=== PATIENT | female | born 1950 | race Caucasian/White ===

== ENCOUNTER → 2016-10-29 | Outpatient (CLI) | payer MEDICARE, OTHER ==
[~2016-10-29] MED LIST: ASPIRIN EC81 M1 PO; CARTIA XT PO; CELEXA10 MG PO; CITALOPRAM HBR10 MG PO; DILTIAZEM 24HR120 MG PO; DIPHENOXYLATE PO; EXCEDRIN TENSI1 EACH PO; GABAPENTIN300 MG PO; IMODIUM2 MG PO; K-DUR20 ME1 PO; LASIX20 MG PO; LISINOPRIL PO; LOMOTIL WHITE2.5 M1 PO; LORTAB 5/500 TA1 TA1 PO; NEXIUM PO; TOPROL XL 50 MG50 MG PO; TOPROL XL PO; TUMS500 M1 PO; VITAMIN D1000 UNI1 PO; WELLBUTRIN SR150 MG PO; [UNRECOGNIZED DRUG - OTHER] PO
--- NOTE | ~2016-10-29 | CT4 ---
[facility] A Service of [facility] & [facility] / [facility] RADIOLOGY TEXT RESULTS PATIENT: BOOKER LLANES LOCATION: [facility] : 50 UNIT #: [id number] AGE: [address]: Michael Santos MD SEX: F ORDER DR: [id number] [facility] [address] [place], [place] [address] [id number] O MR#: [id number] Acc #: [id number] NAME: BOOKER LLANES. : 1950 SEX: F STUDY DATE/TIME: 10/29/2016 11:15 UNIT: CCA ROOM: STUDY DESCRIPTION: CT Abd and Pelv Wo Cont Attending Physician: Michael Santos M.D. Referring Physician: Michael Santos M.D. Ordering Physician: Michael Santos M.D. Primary Care Physician: Hilda Sherman M.D. MEDICAL IMAGING REPORT This report is preliminary unless electronic signature is present EXAM CT of abdomen and pelvis without contrast. DATE OF EXAM 10/29/2016 HISTORY 66-year-old female with history of lymphoma. Diabetes, irritable bowel syndrome for 5 years. Low back pain for 2 months. Last chemotherapy treatment in October 2014. Observation for metastatic disease. Restaging. Previous hysterectomy and cholecystectomy. COMPARISON CT of abdomen and pelvis with contrast, 05/09/2016. PROCEDURE 5 mm axial images from the lung bases to the lesser trochanters without intravenous contrast. Enteric contrast was administered. Sagittal and coronal reformatted images were obtained. TECHNIQUE NOTE: This CT exam was performed with one or more of the following radiation dose reduction techniques: automatic exposure control, adjustment of mA and/or kV according to patient size, and iterative reconstruction. FINDINGS ABDOMEN: Nonpathologically enlarged lymph nodes are present within the retroperitoneum. This includes an 8 mm short axis left periaortic node. No new adenopathy is seen. The liver is steatotic. Cholecystectomy. Small esophageal hiatal hernia. Spleen, pancreas, adrenals and kidneys have a normal noncontrast [facility] A Service of [facility] & [facility] / [facility] RADIOLOGY TEXT RESULTS PATIENT: BOOKER LLANES LOCATION: [facility] : 50 UNIT #: [id number] AGE: [address]: Michael Santos MD SEX: F ORDER DR: appearance. Scattered peripheral interstitial fibrotic changes are present within bilateral lower lobes without consolidation. Appendix is normal. Tiny umbilical hernia contains only fat. The bowel appears nonthickened and noninflamed. PELVIS FINDINGS: Mild diverticular changes are present in the sigmoid colon without evidence of acute diverticulitis. No pathologically enlarged lymph nodes. No ascites. Urinary bladder is decompressed. Rectum normal. Hysterectomy. Advanced loss of disc height with endplate sclerosis at L2-3. IMPRESSION 1. No convincing evidence of disease recurrence or metastatic disease in the abdomen or pelvis in this patient with a history of lymphoma. Shotty retroperitoneal lymph nodes are stable since 05/09/2016. 2. There are no acute findings in the abdomen or pelvis. 3. Degenerative disc and endplate changes at L2-3. No acute osseous abnormality. 4. Hepatic steatosis. 5. Cholecystectomy and hysterectomy. 6. Mild uncomplicated sigmoid diverticulosis. 7. Small umbilical hernia contains only fat. Dictated by... Modesta Chester M.D. THIS IS AN ELECTRONICALLY VERIFIED REPORT Modesta Chester M.D. at 10/30/2016 11:56 AM FELIPE/shreya TD: 10/29/2016 16:55 JOB #: [id number] MEDICAL IMAGING REPORT COPY
== END | disposition home or self-care (01) ==
LOC: CCAT 09:33
DX: C82.13 Follicular lymphoma grade II, intra-abdominal lymph nodes (principal); M54.5 Low back pain; M48.06 Spinal stenosis, lumbar region; K57.30 Diverticulosis of large intestine without perforation or abscess without bleeding; K76.0 Fatty (change of) liver, not elsewhere classified; K42.9 Umbilical hernia without obstruction or gangrene; M51.36 Other intervertebral disc degeneration, lumbar region; Z90.49 Acquired absence of other specified parts of digestive tract; Z90.710 Acquired absence of both cervix and uterus
CPT/HCPCS: 74176

== ENCOUNTER → 2017-04-23 | Outpatient (CLI) | payer MEDICARE, OTHER ==
--- NOTE | ~2017-04-23 | HM ---
Unit #: [id number] #: [id number] Patient: BOOKER LLANES [id number] [facility] [address] [place], [place] [address] [id number] O MR#: [id number] NAME: BOOKER LLANES : 1950 SEX: F STUDY DATE/TIME: 04/23/2017 UNIT: CNIV ROOM: STUDY DESCRIPTION: Attending Physician: Hilda Sherman M.D. Referring Physician: Hilda Sherman M.D. Primary Care Physician: Hilda Sherman M.D. CARDIOLOGY REPORT EXAM 24-hour Holter monitor. DATE APPLIED 04/23/2017 DATE SCANNED 04/29/2017 READ BY [facility] Cardiology ORDERED BY Hilda Shermna M.D. REASON FOR STUDY Frequent PVCs. FINDINGS Underlying rhythm is normal sinus rhythm with an average ventricular rate of 71 beats per minute, minimum heart rate of 52 beats per minute, and a maximum heart rate of 103 beats per minute. The minimum heart rate of 52 beats per minute is noted at 4:58 a.m. The maximum heart rate of 103 beats per minute is noted at 1:11 p.m. Patient had a 1.38 second pause noted at 8:23 p.m. Patient had nine single premature ventricular complex noted. Patient had 85 single premature atrial complex noted. Patient had a three-beat run of paroxysmal supraventricular tachycardia at a heart rate of 121 beats per minute. Patient recorded several symptoms of palpitations and shortness of breath which correlated with normal sinus rhythm. CONCLUSION 1. Underlying rhythm is normal sinus rhythm with an average ventricular rate of 71 beats per minute, minimum heart rate of 52 beats per minute, and a maximum heart rate of 103 beats per minute. 2. No sustained atrial or ventricular arrhythmias noted. 3. No significant pauses noted. 4. Extremely rare single premature atrial complex noted. 5. Patient had a three-beat run of paroxysmal supraventricular tachycardia at a heart rate of 121 beats per minute. 6. Patient recorded several symptoms of palpitations and shortness of breath, all of which correlated with normal sinus rhythm. Unit #: [id number] #: [id number] Patient: BOOKER LLANES Dictated by..Otonile Sarkar/mango TD: 04/29/2017 17:02 JOB #: [id number] CC: Hilda Sherman M.D. CARDIOLOGY REPORT Page 1 of 1 X Crsis Preciado MD <ELECTRONICALLY SIGNED> 05/14/17 1524 HOLTER MONITOR REPORT
--- NOTE | ~2017-04-23 | US37 ---
[facility] A Service of [facility] & [facility] RADIOLOGY TEXT RESULTS PATIENT: BOOKER LLANES LOCATION: CNIV : 50 UNIT #: [id number] AGE: [address]: Hilda Sherman MD SEX: F ORDER DR: [id number] [facility] [address] [place], [place] [address] [id number] O MR#: [id number] Acc #: [id number] NAME: BOOKER LLANES : 1950 SEX: F STUDY DATE/TIME: 04/23/2017 12:43 UNIT: CNIV ROOM: STUDY DESCRIPTION: US Carotid W/Doppler Bilateral Attending Physician: Hilda Sherman M.D. Referring Physician: Hilda Sherman M.D. Ordering Physician: Hilda Sherman M.D. Primary Care Physician: Hilda Sherman M.D. MEDICAL IMAGING REPORT This report is preliminary unless electronic signature is present EXAM Bilateral carotid duplex, 04/23/2017 HISTORY Loss of balance times several months, light-headedness times several months. FINDINGS There is patent flow seen throughout the right common carotid, internal carotid and external carotid arteries. At the right carotid bifurcation, there is some mild atherosclerosis, which is regular appearing and heterogeneous. The right common carotid artery peak velocity is 78 cm/sec. The right internal carotid artery peak systolic over end-diastolic velocities are: proximal 70/19 cm/sec, mid 63/29 cm/sec, distal 80/35 cm/sec. The right external carotid artery peak velocity is 114 cm/sec, vertebral artery 43 cm/sec. The right ICA/CCA ratio is 0.9. There is patent flow seen throughout the left common carotid, internal carotid and external carotid arteries. At the left carotid bifurcation, there is focal heterogeneous and regular appearing plaque. The left common carotid artery peak velocity is 80 cm/sec. The left internal carotid artery peak systolic over end-diastolic velocities are: proximal 66/20 cm/sec, mid 80/34 cm/sec, distal 83/43 cm/sec. The left external carotid artery peak velocity is 84 cm/sec, vertebral artery 38 cm/sec. The left ICA/CCA ratio is 1.0. IMPRESSION 1. There is minimal atherosclerosis of the right carotid artery, which is not hemodynamically significant by duplex criteria (less than 50%). 2. The left carotid artery has minimal atherosclerosis, which is not STS. [facility] A Service of [facility] & [facility] RADIOLOGY TEXT RESULTS PATIENT: BOOKER LLANES LOCATION: [facility] : 50 UNIT #: [id number] AGE: [address]: Hilda Sherman MD SEX: F ORDER DR: hemodynamically significant by duplex criteria (less than 50%). 3. Vertebral flows antegrade bilaterally. Dictated by... Gurmeet Spence M.D. THIS IS AN ELECTRONICALLY VERIFIED REPORT Gurmeet Spence M.D. at 04/28/2017 8:57 AM Airam TD: 04/23/2017 15:27 JOB #: [id number] MEDICAL IMAGING REPORT Page 1 of 1 COPY
--- NOTE | ~2017-04-23 | MR18 ---
[facility] A Service of [facility] & [facility] RADIOLOGY TEXT RESULTS PATIENT: BOOKER LLANES LOCATION: CNIV : 50 UNIT #: [id number] AGE: [address]: Hilda Sherman MD SEX: F ORDER DR: [id number] [facility] [address] [place], [place] [address] [id number] O MR#: [id number] Acc #: [id number] NAME: BOOKER LLANES : 1950 SEX: F STUDY DATE/TIME: 04/23/2017 13:07 UNIT: CNIV ROOM: STUDY DESCRIPTION: MR Brain Wo Contrast Attending Physician: Hilda Sherman M.D. Referring Physician: Hilda Sherman M.D. Ordering Physician: Hilda Sherman M.D. Primary Care Physician: Hilda Sherman M.D. MRI CENTER REPORT This report is preliminary unless electronic signature is present. EXAM MRI of the brain without contrast, dated 04/23/2017. COMPARISON MRI of brain with and without contrast, dated 11/15/2010. HISTORY Gait disturbance for 6 months. Patient has fallen numerous times. FINDINGS Multisequence, multiplanar imaging of the brain was obtained without contrast. Less than 5 hyperintense T2-signal lesions are noted in the brain involving the white matter, particularly in bifrontal lobes. No acute stroke, space-occupying intracranial mass, mass effect, midline shift or hydrocephalus. Vascular flow voids of the major cerebral arteries and dural venous sinuses are not included in these thicker slices. Nasal septum is deviated to the right in the posterior aspect with evidence of septoplasty. Paranasal sinuses and mastoid air cells are unremarkable. Status post bilateral cataract surgery. Thick slices through the sella with the pituitary gland demonstrates a partially empty sella. Pineal region is unremarkable. Degenerative disc disease is seen at C4-5. IMPRESSION 1. No acute intracranial abnormality or space-occupying solid mass. 2. Scattered few small hyperintense T2-signal lesions are noted in the white matter, nonspecific. They appear to be slightly worse since prior study from 6 years ago. Differential consideration include gliosis from old insult like microvascular chronic ischemic change or migraine based on age and statistics. Dictated by... [facility] A Service of [facility] / [facility] RADIOLOGY TEXT RESULTS PATIENT: BOOKER LLANES LOCATION: [facility] : 50 UNIT #: [id number] AGE: [address]: Hilda Sherman MD SEX: F ORDER DR: Lisa Moore M.D. THIS IS AN ELECTRONICALLY VERIFIED REPORT Lisa Moore M.D. at 04/24/2017 5:24 PM CPR/jt TD: 04/23/2017 17:14 JOB #: [id number] MRI CENTER REPORT Page 1 of 1 COPY
== END | disposition home or self-care (01) ==
LOC: CNIV 12:05
DX: I49.3 Ventricular premature depolarization (principal); R26.89 Other abnormalities of gait and mobility; R93.8 Abnormal findings on diagnostic imaging of other specified body structures
CPT/HCPCS: 70551; 93225; 93226; 93880